=== PATIENT | female | born 1995 | race Native Hawaiian/Other Pacific Islander ===

== ENCOUNTER 2018-06-23 20:13 | Emergency (ER) | payer OTHER ==
[~2018-06-23] VITALS: Ht 165.1 cm; Wt 135.6 kg
[2018-06-23 20:19] VITALS: BP 135/84; TEMP 98.8
== END 2018-06-23 21:24 | disposition home or self-care (01) ==
LOC: ED 20:13
DX: Z04.8 Encounter for examination and observation for other specified reasons (principal)
CPT/HCPCS: 99281

== ENCOUNTER 2018-08-10 21:48 | Emergency (ER) | payer OTHER ==
[~2018-08-10] VITALS: Ht 165.1 cm; Wt 107.0 kg
[2018-08-10 23:16] VITALS: BP 107/63; TEMP 98.6
== END 2018-08-10 23:17 | disposition home or self-care (01) ==
LOC: ED 21:48
DX: K08.89 Other specified disorders of teeth and supporting structures (principal); K02.9 Dental caries, unspecified
CPT/HCPCS: 99282

== ENCOUNTER 2019-03-05 02:31 | Emergency (ER) | payer OTHER ==
[~2019-03-05] VITALS: Ht 165.1 cm; Wt 107.0 kg
[2019-03-05 03:27] LABS: PLATELET COUNT 304 K/uL (152-353)
[2019-03-05 03:33] LABS: POTASSIUM 3.8 mmol/L (3.6-5.2)
[2019-03-05 04:00] VITALS: BP 138/62; TEMP 98.2
== END 2019-03-05 04:00 | disposition home or self-care (01) ==
LOC: ED 02:31
PROVIDERS: Internal Medicine
DX: R11.2 Nausea with vomiting, unspecified (principal); R19.7 Diarrhea, unspecified
CPT/HCPCS: 80053; 85027; 96372; 99283; J2405

== ENCOUNTER 2019-03-17 07:05 | Emergency (ER) | payer OTHER ==
[~2019-03-17] VITALS: Ht 165.1 cm; Wt 107.0 kg
[2019-03-17 07:17] VITALS: TEMP 97.7
[2019-03-17 09:08] LABS: PLATELET COUNT 213 K/uL (152-353)
[2019-03-17 09:14] LABS: POTASSIUM 4.1 mmol/L (3.6-5.2)
[2019-03-17 10:27] VITALS: BP 104/68
== END 2019-03-17 10:25 | disposition home or self-care (01) ==
LOC: ED 07:05
PROVIDERS: Emergency Medicine
DX: K82.8 Other specified diseases of gallbladder (principal)
CPT/HCPCS: 36415; 80053; 81000; 81025; 82150; 83690; 85027; 96372; 99283; J1885; J2405

== ENCOUNTER 2019-04-08 11:48 | Emergency (ER) | payer OTHER ==
[~2019-04-08] VITALS: Ht 165.1 cm; Wt 104.3 kg
[2019-04-08 11:54] VITALS: BP 155/67; TEMP 97.3
[2019-04-08 13:05] LABS: PLATELET COUNT 312 K/uL (152-353)
[2019-04-08 13:13] LABS: POTASSIUM 4.2 mmol/L (3.6-5.2)
== END 2019-04-08 14:15 | disposition home or self-care (01) ==
LOC: ED 11:48
PROVIDERS: Family Medicine
DX: K80.20 Calculus of gallbladder without cholecystitis without obstruction (principal); R10.11 Right upper quadrant pain
CPT/HCPCS: 80053; 81000; 82150; 83690; 85027; 99283

== ENCOUNTER 2019-04-29 21:46 | Emergency (ER) | payer OTHER ==
[~2019-04-29] VITALS: Ht 165.1 cm; Wt 106.6 kg
[2019-04-30 00:17] VITALS: BP 121/73; TEMP 98.2
== END 2019-04-30 00:17 | disposition home or self-care (01) ==
LOC: ED 21:46
DX: R11.2 Nausea with vomiting, unspecified (principal); K80.80 Other cholelithiasis without obstruction
CPT/HCPCS: 96372; 99283; J1885; J2405

== ENCOUNTER 2019-05-29 14:57 | Emergency (ER) | payer OTHER ==
[~2019-05-29] VITALS: Ht 165.1 cm; Wt 106.6 kg
[2019-05-29 16:49] VITALS: BP 122/62; TEMP 98.9
== END 2019-05-29 16:52 | disposition home or self-care (01) ==
LOC: ED 14:57
DX: K80.20 Calculus of gallbladder without cholecystitis without obstruction (principal)
CPT/HCPCS: 96372; 99282; 99283; J2175; J2405

== ENCOUNTER 2019-09-08 18:43 | Emergency (ER) | payer OTHER ==
[~2019-09-08] VITALS: Ht 165.1 cm; Wt 104.3 kg
[2019-09-09 00:12] VITALS: BP 125/67; TEMP 98.1
== END 2019-09-09 00:12 | disposition home or self-care (01) ==
LOC: ED 18:43
DX: J06.9 Acute upper respiratory infection, unspecified (principal); R11.2 Nausea with vomiting, unspecified
CPT/HCPCS: 81025; 87502; 87651; 99283

== ENCOUNTER 2020-05-31 16:38 | Emergency (ER) | payer OTHER ==
[~2020-05-31] VITALS: Ht 165.1 cm; Wt 112.5 kg
[2020-05-31 16:57] VITALS: TEMP 98.7
[2020-05-31] MEDS ORDERED: CALNA PO (17:09)
[2020-05-31 17:32] LABS: PLATELET COUNT 245 K/uL (152-353)
[2020-05-31 17:38] LABS: POTASSIUM 3.8 mmol/L (3.6-5.2)
[2020-05-31 18:15] VITALS: BP 128/81
== END 2020-05-31 18:15 | disposition home or self-care (01) ==
LOC: ED 16:38
PROVIDERS: Emergency Medicine
DX: R06.02 Shortness of breath (principal); Z20.828 Contact with and (suspected) exposure to other viral communicable diseases; Z3A.22 22 weeks gestation of pregnancy
CPT/HCPCS: 80053; 85027; 85379; 87635; 93005; 99283; 99284; U00003

== ENCOUNTER 2020-06-29 19:53 | Emergency (ER) | payer OTHER ==
[~2020-06-29] VITALS: Ht 165.1 cm; Wt 115.7 kg
[~2020-06-29 19:53] MED LIST: CALNA PO
[2020-06-29 20:15] VITALS: TEMP 98.2
[2020-06-29 21:00] VITALS: BP 109/58
== END 2020-06-29 21:01 | disposition home or self-care (01) ==
LOC: ED 19:53
DX: L08.89 Other specified local infections of the skin and subcutaneous tissue (principal); W57.XXXA Bitten or stung by nonvenomous insect and other nonvenomous arthropods, initial encounter; Y92.89 Other specified places as the place of occurrence of the external cause
CPT/HCPCS: 99281

== ENCOUNTER 2020-07-25 15:46 | Outpatient (CLI) | payer OTHER ==
[2020-07-25 16:17] LABS: PLATELET COUNT 223 K/uL (152-353)
[2020-07-25 16:32] LABS: POTASSIUM 3.9 mmol/L (3.6-5.2)
== END 2020-07-25 20:01 | disposition home or self-care (01) ==
LOC: LABW 15:46
PROVIDERS: Nurse Practitioner Family
DX: O24.410 Gestational diabetes mellitus in pregnancy, diet controlled (principal); E03.9 Hypothyroidism, unspecified
CPT/HCPCS: 36415; 80053; 83036; 84156; 84439; 84443; 85027

== ENCOUNTER 2020-10-25 08:03 | Emergency (ER) | payer OTHER ==
[~2020-10-25] VITALS: Ht 165.1 cm; Wt 121.6 kg
[2020-10-25 08:19] VITALS: TEMP 98.4
[2020-10-25 08:46] VITALS: BP 126/78
== END 2020-10-25 08:47 | disposition home or self-care (01) ==
LOC: ED 08:03
DX: J20.9 Acute bronchitis, unspecified (principal)
CPT/HCPCS: 99281

== ENCOUNTER 2020-12-18 19:51 | Emergency (ER) | payer OTHER ==
[~2020-12-18] VITALS: Ht 165.1 cm; Wt 121.6 kg
[2020-12-18 19:51] VITALS: BP 95/43; TEMP 97.6
== END 2020-12-18 21:43 | disposition home or self-care (01) ==
LOC: ED 19:51
DX: S39.012A Strain of muscle, fascia and tendon of lower back, initial encounter (principal); X50.1XXA Overexertion from prolonged static or awkward postures, initial encounter; Y92.89 Other specified places as the place of occurrence of the external cause
CPT/HCPCS: 81025; 96372; 99283; J1885; J2360

== ENCOUNTER 2021-02-24 17:06 | Emergency (ER) | payer OTHER ==
[~2021-02-24] VITALS: Ht 165.1 cm; Wt 114.8 kg
[2021-02-24 17:20] VITALS: TEMP 98
[2021-02-24 18:04] VITALS: BP 122/62
== END 2021-02-24 18:04 | disposition home or self-care (01) ==
LOC: ED 17:06
DX: G44.209 Tension-type headache, unspecified, not intractable (principal)
CPT/HCPCS: 96372; 99282; J1885

== ENCOUNTER 2021-03-19 22:03 | Emergency (ER) | payer OTHER ==
[~2021-03-19] VITALS: Ht 165.1 cm; Wt 113.4 kg
[2021-03-19 22:50] LABS: PLATELET COUNT 268 K/uL (152-353)
[2021-03-19 23:02] LABS: POTASSIUM 3.6 mmol/L (3.6-5.2)
[2021-03-19 23:55] VITALS: BP 101/66; TEMP 99
== END 2021-03-20 00:03 | disposition home or self-care (01) ==
LOC: ED 22:03
PROVIDERS: Hospitalist
DX: K52.89 Other specified noninfective gastroenteritis and colitis (principal); R19.7 Diarrhea, unspecified; R11.2 Nausea with vomiting, unspecified
CPT/HCPCS: 36415; 80053; 81025; 83690; 85027; 96360; 96365; 99284; J0696

== ENCOUNTER 2021-06-10 13:36 | Emergency (ER) | payer OTHER ==
[~2021-06-10] VITALS: Ht 165.1 cm; Wt 113.4 kg
[2021-06-10 13:44] VITALS: BP 109/67; TEMP 97.5
== END 2021-06-10 14:48 | disposition home or self-care (01) ==
LOC: ED 13:36
DX: H10.89 Other conjunctivitis (principal)
CPT/HCPCS: 99282

== ENCOUNTER 2021-07-21 16:31 | Emergency (ER) | payer OTHER ==
[~2021-07-21] VITALS: Ht 165.1 cm; Wt 113.4 kg
[2021-07-21 17:11] VITALS: BP 115/64; TEMP 98.3
== END 2021-07-21 17:12 | disposition home or self-care (01) ==
LOC: ED 16:31
DX: M25.532 Pain in left wrist (principal)
CPT/HCPCS: 99282

== ENCOUNTER 2021-08-05 15:30 | Emergency (ER) | payer OTHER ==
[~2021-08-05] VITALS: Ht 165.1 cm; Wt 115.2 kg
[2021-08-05 15:32] VITALS: BP 108/53; TEMP 98.7
== END 2021-08-05 16:21 | disposition home or self-care (01) ==
LOC: ED 15:30
DX: J06.9 Acute upper respiratory infection, unspecified (principal); Z20.822 Contact with and (suspected) exposure to COVID-19
CPT/HCPCS: 87635; 87651; 99283; U0003

== ENCOUNTER 2021-08-28 17:47 | Emergency (ER) | payer OTHER ==
[~2021-08-28] VITALS: Ht 165.1 cm; Wt 115.2 kg
[2021-08-28 20:18] VITALS: BP 110/78; TEMP 98.4
== END 2021-08-28 20:18 | disposition home or self-care (01) ==
LOC: ED 17:47
DX: J20.9 Acute bronchitis, unspecified (principal); Z20.822 Contact with and (suspected) exposure to COVID-19
CPT/HCPCS: 81025; 87635; 93005; 99283; U0003

== ENCOUNTER 2021-09-05 14:28 | Emergency (ER) | payer OTHER ==
[~2021-09-05] VITALS: Ht 165.1 cm; Wt 114.8 kg
[2021-09-05 14:35] VITALS: BP 105/51; TEMP 98.1
== END 2021-09-05 15:27 | disposition home or self-care (01) ==
LOC: ED 14:28
DX: S40.862A Insect bite (nonvenomous) of left upper arm, initial encounter (principal); W57.XXXA Bitten or stung by nonvenomous insect and other nonvenomous arthropods, initial encounter; Y92.89 Other specified places as the place of occurrence of the external cause
CPT/HCPCS: 90471; 90715; 99282; 99283

== ENCOUNTER 2021-09-23 11:37 | Emergency (ER) | payer OTHER ==
[~2021-09-23] VITALS: Ht 165.1 cm; Wt 114.8 kg
[2021-09-23 11:49] VITALS: TEMP 98.9
[2021-09-23 13:16] VITALS: BP 110/60
== END 2021-09-23 13:25 | disposition home or self-care (01) ==
LOC: ED 11:37
DX: J06.9 Acute upper respiratory infection, unspecified (principal); J04.0 Acute laryngitis; Z20.822 Contact with and (suspected) exposure to COVID-19
CPT/HCPCS: 87635; 87651; 99283; U0003

== ENCOUNTER 2021-10-02 20:30 | Emergency (ER) | payer OTHER ==
[~2021-10-02] VITALS: Ht 165.1 cm; Wt 114.3 kg
[2021-10-02 21:25] VITALS: BP 110/72; TEMP 98.3
== END 2021-10-02 21:25 | disposition home or self-care (01) ==
LOC: ED 20:30
DX: S80.862A Insect bite (nonvenomous), left lower leg, initial encounter (principal); W57.XXXA Bitten or stung by nonvenomous insect and other nonvenomous arthropods, initial encounter; Y93.01 Activity, walking, marching and hiking; Y92.89 Other specified places as the place of occurrence of the external cause
CPT/HCPCS: 99282

== ENCOUNTER 2021-10-09 09:58 | Emergency (ER) | payer OTHER ==
[~2021-10-09] VITALS: Ht 165.1 cm; Wt 114.3 kg
[2021-10-09 10:29] LABS: PLATELET COUNT 223 K/uL (152-353)
[2021-10-09 12:32] LABS: POTASSIUM 4.1 mmol/L (3.6-5.2)
[2021-10-09 14:40] VITALS: BP 117/75; TEMP 98.1
== END 2021-10-09 14:40 | disposition home or self-care (01) ==
LOC: ED 09:58
PROVIDERS: Hospitalist
DX: R10.84 Generalized abdominal pain (principal); R11.2 Nausea with vomiting, unspecified
CPT/HCPCS: 36415; 80053; 81000; 81025; 83690; 85027; 96360; 96375; 96376; 99284; J2405; Q9963

== ENCOUNTER 2022-01-02 20:33 | Emergency (ER) | payer OTHER ==
[~2022-01-02] VITALS: Ht 165.1 cm; Wt 114.3 kg
[2022-01-02 21:49] VITALS: BP 125/56; TEMP 98.3
== END 2022-01-02 21:49 | disposition home or self-care (01) ==
LOC: ED 20:33
DX: M54.2 Cervicalgia (principal); M79.18 Myalgia, other site
CPT/HCPCS: 96372; 99283; J1885; J2930

== ENCOUNTER 2022-03-04 15:09 | Emergency (ER) | payer OTHER ==
[~2022-03-04] VITALS: Ht 165.1 cm; Wt 111.1 kg
[2022-03-04 15:15] VITALS: TEMP 98.8
[2022-03-04 16:45] VITALS: BP 108/58
== END 2022-03-04 17:20 | disposition home or self-care (01) ==
LOC: ED 15:09
DX: S29.011A Strain of muscle and tendon of front wall of thorax, initial encounter (principal); W51.XXXA Accidental striking against or bumped into by another person, initial encounter; Y92.89 Other specified places as the place of occurrence of the external cause
CPT/HCPCS: 93005; 99283

== ENCOUNTER 2022-03-14 12:37 | Emergency (ER) | payer OTHER ==
[~2022-03-14] VITALS: Ht 165.1 cm; Wt 111.1 kg
[2022-03-14 12:52] VITALS: TEMP 98
[2022-03-14 13:30] LABS: PLATELET COUNT 261 K/uL (152-353)
[2022-03-14 13:43] LABS: POTASSIUM 4.1 mmol/L (3.6-5.2); SODIUM 138 mmol/L (136-145)
[2022-03-14 17:15] VITALS: BP 120/64
== END 2022-03-14 17:45 | disposition still patient (30) ==
LOC: ED 12:37
PROVIDERS: Emergency Medicine
DX: R07.89 Other chest pain (principal)
CPT/HCPCS: 36415; 80053; 80307; 81000; 84443; 84484; 85027; 85610; 87635; 93005; 99283; U0003

== ENCOUNTER 2022-10-06 18:50 | Emergency (ER) | payer OTHER ==
[~2022-10-06] VITALS: Ht 165.1 cm; Wt 111.1 kg
[2022-10-06 19:10] VITALS: BP 126/75; TEMP 98.7
== END 2022-10-06 22:50 | disposition home or self-care (01) ==
LOC: ED 18:50
DX: B37.31 Acute candidiasis of vulva and vagina (principal); B37.41 Candidal cystitis and urethritis
CPT/HCPCS: 81000; 99284

== ENCOUNTER 2023-01-25 13:38 | Emergency (ER) | payer OTHER ==
[~2023-01-25] VITALS: Ht 165.1 cm; Wt 111.1 kg
[2023-01-25 14:35] VITALS: BP 126/81; TEMP 98.5
== END 2023-01-25 14:15 | disposition home or self-care (01) ==
LOC: ED 13:38
DX: J06.9 Acute upper respiratory infection, unspecified (principal); J02.0 Streptococcal pharyngitis; G44.209 Tension-type headache, unspecified, not intractable
CPT/HCPCS: 96372; 99282; J0696; J1885

== ENCOUNTER 2023-02-15 14:26 | Emergency (ER) | payer OTHER ==
[~2023-02-15] VITALS: Ht 165.1 cm; Wt 102.5 kg
[2023-02-15 14:29] VITALS: BP 107/61; TEMP 98.3
== END 2023-02-15 17:02 | disposition home or self-care (01) ==
LOC: ED 14:26
DX: S60.042A Contusion of left ring finger without damage to nail, initial encounter (principal); S60.032A Contusion of left middle finger without damage to nail, initial encounter; W23.0XXA Caught, crushed, jammed, or pinched between moving objects, initial encounter; Y92.89 Other specified places as the place of occurrence of the external cause
CPT/HCPCS: 99282